=== PATIENT | male | born 1995 | race Caucasian/White ===

== ENCOUNTER → 2023-08-30 | Outpatient (CLI) | payer BC, SELFPAY ==
--- NOTE | 2023-08-30 15:27 | MRI_ITS ---
EXAM: MR LEFT LOWER EXTREMITY WITHOUT INTRAVENOUS CONTRAST, KNEE CLINICAL INDICATION: pain, PF instability, mcl sprain TECHNIQUE: Multiplanar and multisequence MR images of the left knee without intravenous contrast. COMPARISON: No relevant prior studies available. FINDINGS: BONES/JOINTS: There is a bone bruise involving the medial patellar retinaculum insertion site of the patella. Bone bruise of the lateral femoral condyle. No fracture. No abnormal bone marrow signal. No synovial hypertrophy. No intra-articular body. EXTENSOR MECHANISM: See above. MEDIAL MENISCUS: Unremarkable. LATERAL MENISCUS: Unremarkable. MEDIAL CAPSULE/SUPPORTING STRUCTURES: Unremarkable. Intact. LATERAL CAPSULE/SUPPORTING STRUCTURES: Unremarkable. Lateral collateral ligamentous complex, inclusive of the popliteal tendon, are intact. ANTERIOR CRUCIATE LIGAMENT: Unremarkable. Intact. POSTERIOR CRUCIATE LIGAMENT: Unremarkable. Intact. MUSCLES: Unremarkable. CARTILAGE: Unremarkable. Intact. FLUID: Unremarkable. No joint effusion. OTHER SOFT TISSUES: Unremarkable. No popliteal cyst. MRI/Lower Ext Joint Only (Routine) IMPRESSION: There is a bone bruise involving the medial patellar retinaculum insertion site of the patella. Bone bruise of the lateral femoral condyle. Electronically Signed: Mart Miranda MD at 18:08 EDT ,
== END | disposition home or self-care (01) ==
LOC: MRI 15:21
PROVIDERS: PCP Nurse Practitioner Primary Care; Referring Provider Orthopaedic Surgery Sports Medicine; Visit Provider Orthopaedic Surgery Sports Medicine
DX: S83.412A Sprain of medial collateral ligament of left knee, initial encounter (principal); M25.362 Other instability, left knee; M25.562 Pain in left knee
CPT/HCPCS: 73721

== ENCOUNTER 2023-11-11 17:30 | Outpatient (RCR) | payer BC, SELFPAY ==
--- NOTE | 2023-09-17 13:07 | HP.PTEVAL_ITS ---
Patient's Visit Information Visit Information Visit Information: JESSICA RODRIGUES is a 28 year old M referred to Physical Therapy by Dr. Bradly Montano MD with a diagnosis of L MCL sprain, Instability of L patellofemoral joint. Date of Evaluation: 09/11/23 Physical Therapist: Wayne Pereyra DPT Visit Plan Frequency: 2x /Week Duration: 6 Weeks Plan: Start with quad and glute med strengthening. Progress as tolerated. Add in stability exercises for LLE as well. Subjective Subjective: Pt. is here today for his initial evaluation with diagnosis of L MCL sprain, Instability of L patellofemoral joint and L knee pain. Pt. reports a few days ago that he was in an odd position at moved resulting in a patellar dislocation. When the EMS staff arrived then went to straighten his leg and relocated his knee. He arrives with use of TROM brace and has been using pretty consistently. Pt. did have one other episode of this when he was younger and had to be relocated in hospital. Pt. reports overall doing much better now. Pt. reports not doing much active extracurriculars, but does play more video games. Pt. is hopeful to increase his strength and stability to reduce risk for future L knee dislocation. Pain L knee: Pain Intensity (Out of 10): 1 Pain Intensity Range: 0 and 2 Objective Objective: POSTURE: PT. has good posture in stance. Normal wt shift between BLEs. PALPATION: Pt. has some mild edema around L knee joint (1inch difference between L to R). Pt. did have some tenderness at medial joint line, but not severe. NEURO: Normal throughout. No N/T noted. ROM: Pt. has good B knee ROM without increase in symptoms. Pt. has mild HS tightness noted bilateral. MMT: RLE: knee: ext 58.1#, flexion 31.4#; hip: flexion 31.7#, abd 28.1#. LLE: knee: 17.9#, flexion 24.5#; hip: flexion 27.1#, abd 21.3#. GAIT: Pt. has fairly normal gait pattern, slight antalgic pattern noted during L stance phase, but otherwise normal. STAIRS: Fairly normal with use of BHR. Pt. uses RLE to load with descending. Balance/Special Test Scores Lower Extremity Functional Score: 58 Goals Goal 1:: LTG: Pt. to be I with HEP. Goal Time Frame: 4-6 Weeks Goal 2:: LTG: Pt. to have increased quad and glute med strength of LLE symmetrical to R side. Goal Time Frame: 4-6 Weeks Goal 3:: LTG: Pt. to complete all work duties without increase in symptoms. Goal Time Frame: 4-6 Weeks Goal 4:: LTG: Pt. to have symmetrical edema between BLEs. Goal Time Frame: 4-6 Weeks Rehabilitation Potential Physical Therapy Diagnosis: Pt. has signs and symptoms consistent with instability of L patellofemoral joint. Pt. has some marked quad and glute medius weakness. Pt. would benefit from PT to increase L knee stability and quad strengthening. Rehabilitation Potential: Excellent Anticipated Interventions Patient/Client Instruction: Educate patient on: Condition, Plan of Care, Risk Factors and Benefits of Fitness Program For the Purpose of:: To facilitate caregiver knowledge, To improve self management, To prevent re-injury, To improve ability to perform tasks related to life management and To improve tolerance to ADL's Therapeutic Exercise to Include: Strength training, Power training, Endurance training, Balance training, Coordination, Agility training and Dynamic Lumbar Stabilization For the Purpose of:: To decrease pain, To decrease swelling/inflammation, To increase ROM, To improve nutrient delivery to tissue, To improve muscle performance and motor function, To improve ability to perform ADL's, To increase tolerance to activity/condition/position, To improve performance and independence with ADL's and To improve gait and locomotor functions Text: Thank you for the opportunity to evaluate your patient. For Medicare and Medicare HMO plans, please review the plan of care and approve it. It will need to be FAXED BACK to us at [phone] for Medicare purposes. For Medicare only, by signing this I certify the plan of care. Please let me know if there are questions or concerns regarding this plan of care. Physician Signature: Date:
== END 2023-11-11 19:00 | disposition home or self-care (01) ==
LOC: PT 17:30
PROVIDERS: PCP Nurse Practitioner Primary Care; Referring Provider Orthopaedic Surgery Sports Medicine; Visit Provider Orthopaedic Surgery Sports Medicine
DX: S83.412D Sprain of medial collateral ligament of left knee, subsequent encounter (principal); M25.362 Other instability, left knee; M25.562 Pain in left knee
CPT/HCPCS: 97110; 97161

== ENCOUNTER 2024-04-01 16:30 | Outpatient (RCR) | payer BC, SELFPAY ==
--- NOTE | 2024-01-29 18:50 | HP.PTEVAL_ITS ---
Patient's Visit Information Visit Information Visit Information: JESSICA RODRIGUES is a 28 year old M referred to Physical Therapy by Dr. Bradly Montano MD with a diagnosis of R knee instability. Date of Evaluation: 01/29/24 Physical Therapist: IRWIN Prasad Visit Plan Frequency: 2x /Week Duration: 2 Months Plan: 2X/ week for 8 weeks for R hip and knee strength, core strength, gait training, stair training, curb steps with HEP HEP: SLR, S/L hip abd, standing heel and toe raises, QS with towel under the knee, heel slides Subjective Subjective: He dislocated his R knee on 01-16 and he was at work and turned to put parts on a skid and it dislocated. He went to the ER and they had 2 people try and put it back in place. He is in a brace and he said to get off the crutches when he feels ready. He has been babying his knee since the so he has not had the feeling like it was going to pop out. No pain today. He has 2 stairs to get into the house and he is going good leg up first and then when go down the step, he goes down with the opposite. He goes back to work on Saturday and on light duty until 03-02. Pain R knee pain: Pain Intensity (Out of 10): 0 Objective Objective: Gait: Walks with a crutch on his R side with R knee brace. Instructed pt to use the crutch on the L side with gait. Walks with decrease stance time on the R LE. He was able to walk with his brace on and no crutch but very apprehensive Able to SLR with slight pain around the medial knee cap Pt is able to do a bridge with no pain R knee AROM -2 degrees from full extension to 135 degrees knee flexion L knee MMT not formally assessed due to injury and apprehension Balance/Special Test Scores Lower Extremity Functional Score: 20 Goals Goal 1:: I HEP Goal Time Frame: 4-6 Weeks Goal 2:: Be able to walk with normal gait pattern with no pain Goal Time Frame: 4-6 Weeks Goal 3:: Be able to go up and down steps recip with no rail with no pain Goal Time Frame: 4-6 Weeks Goal 4:: Increase strength of R knee to be equal to that of the L Goal Time Frame: 4-6 Weeks Rehabilitation Potential Rehabilitation Potential: Good Anticipated Interventions Patient/Client Instruction: Educate patient on: Condition and Plan of Care For the Purpose of:: To decrease pain, To increase ROM, To improve nutrient delivery to tissue, To improve muscle performance and motor function, To improve ability to perform ADL's, To increase tolerance to activity/condition/position, To improve performance and independence with ADL's, To decrease level of supervision to perform tasks, To improve ability of physical actions for home/community/work/leisure, To improve gait and locomotor functions, To improve health of tissue, To decrease soft tissue restriction and To increase flexibility/ROM Therapeutic Exercise to Include: Strength training, Endurance training, Balance training, Postural training, Flexibilty training, Gait and locomotor training, Neuromotor development, Active ROM and Dynamic Lumbar Stabilization For the Purpose of:: To decrease pain, To increase ROM, To improve nutrient delivery to tissue, To improve muscle performance and motor function, To improve ability to perform ADL's, To increase tolerance to activity/condition/position, To improve performance and independence with ADL's, To decrease level of supervision to perform tasks, To improve ability of physical actions for home/community/work/leisure, To improve gait and locomotor functions, To improve health of tissue, To decrease soft tissue restriction, To increase flexibility/ROM, To improve endurance, To improve balance and To improve safety with gait Functional Training to Include: Gait training For the Purpose of:: To improve gait and locomotor functions and To improve safe ty with gait Text: Thank you for the opportunity to evaluate your patient. For Medicare and Medicare HMO plans, please review the plan of care and approve it. It will need to be FAXED BACK to us at [phone] for Medicare purposes. For Medicare only, by signing this I certify the plan of care. Please let me know if there are questions or concerns regarding this plan of care. Physician Signature: Date:
--- NOTE | 2024-06-24 10:12 | HP.PTDCSUM ---
Discharge Summary D/C summary: It has been my pleasure to treat JESSICA RODRIGUES referred by Dr. Bradly Montano MD, with the diagnosis of R knee instability for a total of 16 visit(s). Discharge Date: 06/24/24 Please see the following information for a summary of their discharge status. Subjective Subjective: Pt reports that he is 90% better. he reports that he still has a slight fear that it will pop out of place again but much improved. He feels that he could do a HEP and still improve. Pain R knee pain: Pain Intensity (Out of 10): 0 Overall Improvement % Improvement: 90 Objective Objective/Function: R knee flex 15.7 and L 12.4 R knee ext 27.9 and L 29.8 Goals Goal 1:: I HEP Goal Progress: Goal Met Goal 2:: Be able to walk with normal gait pattern with no pain Goal Progress: Goal Met Goal 3:: Be able to go up and down steps recip with no rail with no pain Goal Progress: Goal Met Goal 4:: Increase strength of R knee to be equal to that of the L Goal Progress: Progressing Plan Plan: Pt will let me know how his HEP is going and call within 3 weeks if he is having issues D/C Information Discharge Comments: DC PT as pt has not called in with any issues d/c sentence: If there are questions or concerns regarding this patient's physical therapy, please feel free to call me at [phone]. Thank you for the referral of this patient. Sincerely, Lila Navarrete, MPT Balance/Gait/Functional tests Balance/Special Test Scores Lower Extremity Functional Score: 80 Improvement % Improvement: 90
== END 2024-04-01 19:00 | disposition home or self-care (01) ==
LOC: PT 16:30
PROVIDERS: PCP Nurse Practitioner Primary Care; Referring Provider Orthopaedic Surgery Sports Medicine; Visit Provider Orthopaedic Surgery Sports Medicine
DX: M25.361 Other instability, right knee (principal)
CPT/HCPCS: 97110; 97161; 97530